=== PATIENT | male | born 1995 | race Caucasian/White ===

== ENCOUNTER 2020-04-24 15:17 | Emergency (ER) | payer SELFPAY ==
[~2020-04-24] VITALS: Ht 172.7 cm; Wt 72.6 kg
[2020-04-24 15:40] VITALS: BP 126/69
--- NOTE | 2020-04-24 17:51 | NUR ---
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
--- NOTE | 2020-04-24 18:27 | NUR ---
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
--- NOTE | 2020-04-24 18:49 | NUR ---
SCHOOL GUARD: NA X 3
== END 2020-04-24 18:50 | disposition left against medical advice (07) ==
LOC: ED 18:40
DX: M25.512 Pain in left shoulder (principal); R10.9 Unspecified abdominal pain
CPT/HCPCS: 99281